=== PATIENT | female | born 1975 | race Caucasian/White ===

== ENCOUNTER → 2023-07-23 08:50 | Outpatient (REF) | payer BC, SELFPAY | LOC: HWRAD 08:50 | PROVIDERS: ATTENDING PHYSICIAN Specialist; FAMILY PHYSICIAN Family Medicine | DX: N20.0 Calculus of kidney (principal) | CPT/HCPCS: 76770 ==

== ENCOUNTER → 2023-08-20 07:47 | Outpatient (REF) | payer BC, SELFPAY | LOC: HWRAD 07:47 | PROVIDERS: ATTENDING PHYSICIAN Obstetrics & Gynecology; FAMILY PHYSICIAN Family Medicine | DX: R10.2 Pelvic and perineal pain (principal); N93.9 Abnormal uterine and vaginal bleeding, unspecified | CPT/HCPCS: 76830; 76856 ==

== ENCOUNTER 2023-09-29 06:31 | Day surgery (SDC) | payer BC, SELFPAY ==
[2023-09-21 07:01] VITALS: BMI 33.5
[2023-09-21 09:18] LABS: Hematocrit 36.3 % (37.0-47.0); Mean Corp Hgb Conc. 33.1 g/dL (33.0-37.0); Mean Corpuscular Hgb 29.8 pg (27.0-31.0); Mean Corpuscular Volume 90.1 fL (81.0-99.0); Mean Platelet Volume 9.3 fL (7.4-10.4); Platelet Count 346 10^3/uL (130-400); Red Blood Cell Count 4.03 10^6/uL (4.20-5.40); Red Cell Dist. Width 12.8 % (11.5-14.5); White Blood Cell Count 7.5 10^3/uL (4.8-10.8)
[2023-09-21 09:45] LABS: Blood Urea Nitrogen 18 mg/dl (7-17); Calcium 9.6 mg/dl (8.4-10.2); Carbon Dioxide 27 mmol/L (22-30); Chloride 102 mmol/L (98-107); Estimated Creatinine Clearance 88 ml/min; Glucose 94 mg/dl (70-99); Potassium 4.5 mmol/L (3.5-5.1); Sodium 137 mmol/L (135-145); eGFR > 60.00
[2023-09-29] VITALS (12 sets, daily range): BP systolic 109–136; BP diastolic 63–79; BMI 33.5
[2023-09-29] MEDS: Pyridium 200 MG PO (13:19)
[2023-09-29] MEDS: NORMOSOL-R 1000 IV ×2 (13:29→21:19)
[2023-09-29] MEDS: DILAUDID 0.25 MG IV (21:04)
[2023-09-29] MEDS: ROXICODONE 5 MG PO (21:16)
[2023-09-29] MEDS: TYLENOL 650 MG PO (21:16)
--- NOTE | 2023-09-30 00:35 | PTCARENOTE ---
21:40pt admit from PACU, fluids infusing, vs WNL, pt denies pain , oriented to unit
[2023-09-30] MEDS: TORADOL 15 MG IV ×2 (02:15→08:50)
--- NOTE | 2023-09-30 03:33 | DOWNTIME ---
There was a [employer] [facility] Downtime on 09/30/2023 from 0100 to 09/30/2023 at 0255. Downtime documentation of patient's care, including medication administrations, has been reconciled in the electronic record per guidelines. Refer to the
patient's paper chart under the miscellaneous tab to see printed paper medication records and downtime forms.
[2023-09-30 03:55] VITALS: BP 104/68
[2023-09-30] MEDS: NORMOSOL-R 1000 IV (04:52)
[2023-09-30 05:40] LABS: Hematocrit 36.5 % (37.0-47.0); Hemoglobin 12.3 g/dL (12.0-16.0); Mean Corp Hgb Conc. 33.7 g/dL (33.0-37.0); Mean Corpuscular Hgb 30.1 pg (27.0-31.0); Mean Corpuscular Volume 89.2 fL (81.0-99.0); Mean Platelet Volume 9.2 fL (7.4-10.4); Platelet Count 355 10^3/uL (130-400); Red Blood Cell Count 4.09 10^6/uL (4.20-5.40); Red Cell Dist. Width 12.5 % (11.5-14.5); White Blood Cell Count 11.2 10^3/uL (4.8-10.8)
[2023-09-30 05:56] LABS: Blood Urea Nitrogen 13 mg/dl (7-17); Estimated Creatinine Clearance 88 ml/min
[2023-09-30 07:34] VITALS: BP 116/70
--- NOTE | 2023-09-30 08:40 | W.PN.GYN ---
Today's Communication / Plan
-
-d/c home
Physician Note
-
Assessment and Plan:
48 yo woman POD 1 s/p robotic diagnostic laparoscopy, right ovarian cystectomy, peritoneal biopsies, hysteroscopy, dilation and curettage: patient meeting postop [facility].
1. postop care
-hep lock iv
-regular diet
-scds and ambulation
-cbc wnl
-bmp wnl
-voiding normally
2. dispo
-d/c home
Subjective
pain well controlled, no acute complaints
Objective:
Intake and Output
09/28/23 09/29/23 09/30/23 10/01/23
06:59 06:59 06:59 06:59
Intake Total 1387 / 1387
Output Total 600 / 600
Balance 787 / 787
Intake:
Oral fluids 200 / 200
IV fluids (Total) 1187 / 1187
Output:
Urine, Voided 600 / 600
Vital Signs
Temp Pulse Resp BP Pulse Ox
98.4 F 75 16 116/70 94
09/30/23 07:34 09/30/23 07:34 09/30/23 07:34 09/30/23 07:34 09/30/23 07:34
Lab Results
09/30/23 04:46
09/30/23 04:46
Exam:
Abdomen: soft, nontender, nondistended
Incision: clean dry intact
: no significant bleeding
[2023-09-30] MEDS: LEXAPRO 20 MG PO (08:49)
[2023-09-30] MEDS: SINGULAIR 10 MG PO (08:49)
[2023-09-30] MEDS: COLACE 100 MG PO (08:50)
[2023-09-30] MEDS: NEURONTIN 300 MG PO (08:50)
[2023-09-30] MEDS: PROTONIX 40 MG PO (08:50)
[2023-09-30] MEDS: KLONOPIN 0.25 MG PO (08:50)
[2023-09-30] MEDS: ZYRTEC 10 MG PO (08:51)
--- NOTE | 2023-09-30 12:16 | CM ---
Patient seen at bedside. Patient states that she is for discharge home today and does not have any needs at this time. Family to transport home, no VN needs. Patient PCP is Dr. Sarah José and Patient uses the [facility] in [place] for
pharmacy needs. CM will continue to follow for discharge planning needs.
Plan; home with family follow up with physicians as directed
== END 2023-09-30 11:10 | disposition home or self-care (01) ==
LOC: SDS 06:31
PROVIDERS: ATTENDING PHYSICIAN Obstetrics & Gynecology; FAMILY PHYSICIAN Family Medicine
DX: N83.11 Corpus luteum cyst of right ovary (principal); N83.291 Other ovarian cyst, right side; R10.2 Pelvic and perineal pain; G89.29 Other chronic pain; N93.9 Abnormal uterine and vaginal bleeding, unspecified; N30.10 Interstitial cystitis (chronic) without hematuria; N88.2 Stricture and stenosis of cervix uteri; R93.89 Abnormal findings on diagnostic imaging of other specified body structures; N94.89 Other specified conditions associated with female genital organs and menstrual cycle
CPT/HCPCS: 58662; 49321; 58558; 88305; 36415; 80048; 82565; 84520; 85027; 93005

== ENCOUNTER → 2024-04-01 08:08 | Outpatient (REF) | payer BC, SELFPAY | LOC: WDC 08:08 | PROVIDERS: ATTENDING PHYSICIAN Obstetrics & Gynecology Gynecology; FAMILY PHYSICIAN Family Medicine | DX: Z12.31 Encounter for screening mammogram for malignant neoplasm of breast (principal) | CPT/HCPCS: 77063; 77067 ==

== ENCOUNTER → 2024-04-08 09:13 | Outpatient (REF) | payer BC, SELFPAY | LOC: WDC 09:13 | PROVIDERS: ATTENDING PHYSICIAN Obstetrics & Gynecology Gynecology; FAMILY PHYSICIAN Family Medicine | DX: R92.8 Other abnormal and inconclusive findings on diagnostic imaging of breast (principal) | CPT/HCPCS: 76642 ==